=== PATIENT | male | born 1955 | race Caucasian/White ===

== ENCOUNTER 2024-07-27 15:46 | Emergency (ER) | payer SELFPAY ==
[~2024-07-27] VITALS: Ht 172.7 cm; Wt 74.0 kg
[2024-07-27 15:49] VITALS: O2SAT 99
[2024-07-27] MEDS: TETRACAINE 0.5% OPHTH DROPS 4ML RIGHTEYE ONE (16:15)
[2024-07-27] MEDS: LIDOCAINE HCL/EPINEPHRINE 1%-EPI 1:100,000 20ML VIAL INFIL ONE (16:15)
[2024-07-27] MEDS: LIDOCAINE HCL/PF 1% 10 MG/ML 5ML VIAL INFIL ONE (16:15)
[2024-07-27] MEDS: BACITRACIN ZINC OINT UDPKT TOP ONE (16:15)
[2024-07-27] MEDS: MORPHINE SULFATE 2 MG/ML INJ (NOT FOR IM USE) IV ONE (16:39)
[2024-07-27] MEDS: TETANUS, DIPHTHERIA, PERTUSSIS VAC/PF 0.5ML (>10YR OLD) IM ONE (16:39)
[2024-07-27] MEDS: SODIUM CHLORIDE 0.9% 1,000 ML IV ONE (16:40)
[2024-07-27] MEDS: FLUORESCEIN SODIUM 1MG/STRIP RIGHTEYE ONE (16:45)
[2024-07-27 16:49] LABS: CHLORIDE 98 mEq/L (98-107); POTASSIUM 3.6 mEq/L (3.5-5.1); SODIUM 130 mEq/L (136-145)
[2024-07-27 16:50] LABS: BASOPHILS % 0.7 % (0.0-2.0); CARBON DIOXIDE 24 mEq/L (21-32); EOSINOPHILS % 1.1 % (0.0-5.0); HEMATOCRIT. 42.9 % (42.0-52.0); HEMOGLOBIN. 14.4 g/dL (14.0-18.0); LYMPHOCYTES % 32.2 % (20.0-50.0); MEAN CORPUSCULAR HEMOGLOBIN 33.4 pg (28.0-32.0); MEAN CORPUSCULAR HGB CONC 33.6 g/dL (31.0-37.0); MEAN CORPUSCULAR VOLUME 99.2 fL (80.0-94.0); MEAN PLATELET VOLUME 6.3 fl (7.4-10.4); PLATELET 262 x1000/uL (130-400); RED BLOOD CELL COUNT 4.33 mill/uL (4.7-6.1); RED CELL DISTRIBUTION WIDTH 12.2 % (11.6-14.6); WHITE BLOOD COUNT 10.7 x1000/uL (4.5-11.0)
[2024-07-27 16:51] LABS: CALCIUM 8.2 mg/dL (8.7-10.4)
[2024-07-27 16:55] LABS: CREATININE 0.6 mg/dL (0.6-1.3); GLUCOSE 108 mg/dL (70-105)
[2024-07-27 16:56] LABS: ETHANOL BLOOD 212 mg/dL (<10); UREA NITROGEN BLOOD 6 mg/dL (9-23)
[2024-07-27 16:57] LABS: PROTHROMBIN TIME 10.7 sec (9.6-11.0); TROPONIN I HIGH SENSITIVITY 7 ng/L (3.0-53)
[2024-07-27 17:21] LABS: PARTIAL THROMBOPLASTIN TIME 23.9 sec (23.4-31.0)
[2024-07-27] MEDS ORDERED: CEPH500C2 MT (21:40)
[2024-07-27] MEDS ORDERED: IBUP-2028 MT (21:40)
[2024-07-27] MEDS ORDERED: HYDR-4001 MT (21:40)
[2024-07-27] MEDS: CEFAZOLIN 1000MG PREMIX 50 ML IV ONE (22:11)
[2024-07-27 22:45] VITALS: BP 157/84; PULSE 78; RESP 15; TEMP 37.1; O2SAT 98
== END 2024-07-27 22:45 | disposition home or self-care (01) ==
LOC: ER 15:54
DX: S02.2XXA Fracture of nasal bones, initial encounter for closed fracture (principal); S02.40DA Maxillary fracture, left side, initial encounter for closed fracture; S01.81XA Laceration without foreign body of other part of head, initial encounter; S80.211A Abrasion, right knee, initial encounter; F10.129 Alcohol abuse with intoxication, unspecified; I49.9 Cardiac arrhythmia, unspecified; Y04.0XXA Assault by unarmed brawl or fight, initial encounter; Y93.89 Activity, other specified; Y92.89 Other specified places as the place of occurrence of the external cause; Y99.8 Other external cause status; Y90.7 Blood alcohol level of 200-239 mg/100 ml
CPT/HCPCS: 80048; 80320; 85025; 85610; 85730; 84484; 36415; 71045; 73560; 70450; 70486; 71250; 90715; 93005; 12015; 90471; 96361; 96365; 96375; 99285; J0690; J2004; J2003; J2270; J7030; Z7610 ×2; G0480